=== PATIENT | female | born 1990 | race Caucasian/White ===

== ENCOUNTER 2017-09-28 02:29 | Emergency (ER) | payer BC ==
[~2017-09-28] VITALS: Ht 157.5 cm; Wt 54.4 kg
[2017-09-28] MEDS ORDERED: KETOROLAC TROMETHAMINE 60 MG INJ IM ONE (03:04)
[2017-09-28] MEDS: KETOROLAC TROMETHAMINE 60 MG INJ IM ONE (03:16)
--- NOTE | 2017-09-28 03:25 | NUR ---
Patient discharged to home in stable conditon. Patient reported reduced pain prior to discharge. Written and verbal after care instructions given. Patient verbalizes understanding of instructions. Patient able to ambulate unassisted with steady gait. Patient left with all personal belongings.
[2017-09-28 03:32] VITALS: BP 119/77
== END 2017-09-28 03:25 | disposition home or self-care (01) ==
LOC: ER 02:34
DX: M62.830 Muscle spasm of back (principal); Z88.1 Allergy status to other antibiotic agents
CPT/HCPCS: 72072; 96372; 99284; A4663; J1885